=== PATIENT | female | born 1980 | race Caucasian/White ===

== ENCOUNTER 2018-12-28 08:15 | Day surgery (SDC) | payer BC, OTHER, SELFPAY ==
[2018-12-28] VITALS (7 sets, daily range): BP systolic 92–113; BP diastolic 49–70; PULSE 70–90; RESP 16–18; TEMP 35.8–37.1; O2SAT 95–100
[2018-12-28] MEDS: Lactated Ringers 1,000 ML 80 ML IV (09:10)
[2018-12-28] MEDS: Gelatin SPONGE 12-7 MM PKT 1 EACH TP (10:26)
--- NOTE | 2018-12-28 10:36 | W.PM.OP ---
Date of service: 12/28/18 Time of Service: 10:36 Operative Note DATE OF PROCEDURE: 12/28/18 PRE-OP DIAGNOSIS: ext hemorrhdal tags POST-OP DIAGNOSIS: same PROCEDURE: excision x1 ANESTHESIA: local and spinal ESTIMATED BLOOD LOSS: 2 PATHOLOGY: none sent Patient was transported to: same day Implants: 0 Procedure Description: dicatated
--- NOTE | 2018-12-28 10:41 | W.PM.DSUDISC ---
Discharge Plan Disposition Patient Disposition: HOME Condition: Good Discharge Details Reason For Visit: hemorroid surgery Attending Provider: Shruthi Rivera Primary Care Provider: Chapis Bryan Home Meds and New Rx's Prescriptions: New dibucaine 1 % ointment 1 applic ME QID PRN (Reason: rectal discomfort) Qty: 56.7 RF: 2 ibuprofen 600 mg tablet 600 mg PO TID PRN (Reason: pain) Qty: 60 RF: 0 tramadol [Ultram] 50 mg tablet 50 mg PO Q6H PRN (Reason: pain) Qty: 7 RF: 0 Continued PNV,calcium 72-iron,carb-folic 29 mg iron- 1 mg tablet 1 tab PO DAILY RF: 0 cholecalciferol (vitamin D3) 1,000 unit capsule 1,000 unit PO DAILY RF: 0 betamethasone dipropionate 0.05 % cream 1 applic TP BID PRNRF: 0 loratadine [Allergy Relief (loratadine)] 10 mg tablet 10 mg PO DAILY PRN (Reason: allergy symptoms) RF: 0 multivitamin [Daily Value] 1 EACH tablet 1 ea PO DAILY RF: 0 Claricort 5 mg PO QDAY RF: 0 [place] RF: 0 Discharge Instructions Additional Instructions: Home Care Instructions after Rectal Surgery Pain/muscle spasms are normal after surgery. Use the prescribed pain medications, and topical creams. Do not use any other creams unless specifically prescribed for you. It takes oral pain meds an hour to take effect. Do not get behind on your pain meds. You can alternate with NSAID?s (ibuprofen 400-600mg) every 8 hours. Take with food; do not take if you have ulcers or sensitivity to aspirin. Constipation occurs with the use of narcotic pain medications. The first bowel movement after surgery will be painful. Do not let yourself get constipated. Stay on a stool softener while you are on the narcotics. It is recommended that you use a fiber supplement (Metamucil, Citrucel) daily (1 tablespoon in 8 oz of water). If you do not have a bowel movement daily, use Milk of Magnesia or MiraLAX. It is normal to have bleeding or drainage after rectal surgery; especially when you move your bowels. Use a sanitary napkin to collect the discharge. If you are passing large clots or having to change the pad more than every 4 hours, call the clinic or go to the ER. You may experience spasms in the rectal muscles. This is normal after surgery and last for about two weeks. They can become more intense with bowel movements. You can also try sitz bathes (sitting in a bath tub of PLAIN lukewarm water; soap can add to rectal irritation). Or you can try ice packs. You will have to see what works best for you. It is ok to shower. Avoid soap on the surgical area. Use a pillow to sit on. Follow a mild bland diet. Avoid alcohol, spicy food, citrus, and tomatoes. Avoid strenuous activity (running, jogging, and power walking, swimming, weight lifting) for two weeks. No lifting over 5 pounds for 2 [address] if taking pain medications, or cannot turn or twist your body without hesitation. You can return to work when you are no longer taking the pain meds, can sit comfortably for 8 hours or when the weight restrictions are lifted. Urinary retention is common. Sit in a warm tub to try to relax the bladder. If you are unable to urinate after 8 hours, call the office or go to the ER. If you have packing in place, follow the directions for doing the dressing changes. If you have stitches in place, they will fall out in about 7-10 days. They may develop an ?odor?. Stand Alone Forms: DSU Post op Instructions, Magui Hanna (DSU) Activity:: see above Remove Dressings/Wound Care:: 24 hours Shower/Bathe:: 24 hours Diet:: avoid constipation Discharge Orders Discharge Orders: Discharge Order (Routine); Ordered 12/28/18 Ordered By: Shruthi Rivera DS: Diagnosis Discharge Diagnosis (1) External hemorrhoids with other complication: Status: Acute
--- NOTE | 2018-12-28 11:54 | ROE_ITS ---
DATE OF PROCEDURE: December 28, 2018 PREOPERATIVE DIAGNOSIS: External hemorrhoidal tags. POSTOPERATIVE DIAGNOSIS: Same. PROCEDURE: Excision thereof x1. SURGEON: Shruthi Rivera D.O. ANESTHESIA: Spinal. ESTIMATED BLOOD LOSS: 2 cc's CONDITION: The patient tolerated the procedure well without complications. INDICATION FOR PROCEDURE: Ms. Mcdaniel is a 38-year-old female with external hemorrhoidal tags from her recent . We had discussed conservative care. The patient does want them removed. She has not completed her family status, she thinks. She doesn't know if she is going to get or wh en. She would like to have them removed. Informed consent was obtained, explaining risks and benefi ts of the procedure, not limited to bleeding, infection, scarring and recurrence, damage to sphincter s, chronic pain, chronic numbness, and complications of anesthesia and other unforetold complications . DESCRIPTION OF PROCEDURE: The patient is brought to the operating room suite. Spinal anesthesia is administered per the Department of Anesthesia. The patient is then placed in the prone position with all bony surfaces padded. The area is prepped and draped in the usual sterile fashion using a Betad ine scrub solution. A time-out was performed. 10 cc's of 0.5% Marcaine with epinephrine is used to do a pudendal block and for local anesthetization. Anal speculum exam is done. She has no internal hemorrhoidal complexes. She has a small tag at the 6 o'clock position, but I don't think this is worth removing. She has a large tag at the 1 o'clock p osition. Again this is anesthetized with 5 cc's of 0.5% Marcaine with epinephrine, is excised locall y using electrocautery. The incision is closed with #3-0 Vicryl. Dibucaine-impregnated Gelfoam is t hen inserted in the rectum and sterile dressing is applied. The patient tolerated the procedure well without complications and transferred to the recovery room i n stable condition. cc: Chapis Bryan M.D.
[2018-12-28] MEDS: Ibuprofen 600 MG TAB PO (14:05)
== END 2018-12-28 14:35 | disposition home or self-care (01) ==
PROVIDERS: PCP Registered Nurse; Visit Provider Surgery
PROC: (CPT 46220; principal; 2018-12-28 09:00)
DX: K64.4 Residual hemorrhoidal skin tags (principal)
CPT/HCPCS: 46220; 81025; J2250; J3010